=== PATIENT | female | born 2000 | race African-American/Black ===

== ENCOUNTER 2022-06-07 13:37 | Emergency (ER) | payer MEDICAID ==
[~2022-06-07] VITALS: Ht 170.2 cm; Wt 120.0 kg
[2022-06-07 14:48] VITALS: BP 129/97
[2022-06-07] MEDS ORDERED: methylPREDNISolone SOD SUCC 125 MG/2 ML VL IM ONE (15:30)
[2022-06-07] MEDS ORDERED: IPRATROPIUM BROM 0.5 MG/2.5ML INH SOL NEB ONE (15:30)
[2022-06-07] MEDS ORDERED: ALBUTEROL SULF 2.5 MG/0.5ML(0.5%) NEB SOLN NEB ONE (15:30)
[2022-06-07] MEDS ORDERED: PRED20TA2 PO (16:23)
[2022-06-07] MEDS ORDERED: ALB5IS NEB (16:23)
== END 2022-06-07 16:28 | disposition home or self-care (01) ==
LOC: ER 13:37
DX: J45.901 Unspecified asthma with (acute) exacerbation (principal)
CPT/HCPCS: 71045; 94640; 96372; 99283; J2930; J7644